=== PATIENT | male | born 1970 | race Caucasian/White ===

== ENCOUNTER 2018-09-13 18:02 | Emergency (ER) | payer OTHER ==
[~2018-09-13] VITALS: Ht 165.1 cm; Wt 93.0 kg
[~2018-09-13 18:02] MED LIST: KETO10TA2 PO; LEVAQUIN750 MG PO; TAMS0.4C PO
== END 2018-09-13 21:12 | disposition home or self-care (01) ==
LOC: ER 18:02
DX: S52.572A Other intraarticular fracture of lower end of left radius, initial encounter for closed fracture (principal); S60.212A Contusion of left wrist, initial encounter; S40.012A Contusion of left shoulder, initial encounter; W10.8XXA Fall (on) (from) other stairs and steps, initial encounter; Y93.89 Activity, other specified; Y92.69 Other specified industrial and construction area as the place of occurrence of the external cause; Y99.8 Other external cause status

== ENCOUNTER 2018-10-04 08:00 | Day surgery (SDC) | payer OTHER ==
[~2018-10-04] VITALS: Ht 165.1 cm; Wt 89.8 kg
== END 2018-10-04 13:00 | disposition home or self-care (01) ==
LOC: CIR.AMB 08:00 → ER 09:26 → SEC-K 09:26 → EDSTATUS 13:00 → CIR.AMB 13:00 → O/R 15:07 → SEC-K 15:07 → O/R 19:55
DX: S52.572A Other intraarticular fracture of lower end of left radius, initial encounter for closed fracture (principal)
CPT/HCPCS: 25609; 25280; 25118; C1776